=== PATIENT | female | born 1960 | race Caucasian/White ===

== ENCOUNTER → 2024-03-13 09:07 | Outpatient (REF) | payer MEDICARE, SELFPAY | LOC: RAD 09:07 | PROVIDERS: ATTENDING PHYSICIAN Otolaryngology; FAMILY PHYSICIAN Internal Medicine | DX: H91.8X3 Other specified hearing loss, bilateral (principal); H93.8X2 Other specified disorders of left ear | CPT/HCPCS: 70480 ==

== ENCOUNTER → 2024-04-21 10:48 | Outpatient (REF) | payer MEDICARE, SELFPAY | LOC: PAVMRI 10:48 | PROVIDERS: ATTENDING PHYSICIAN Otolaryngology; FAMILY PHYSICIAN Internal Medicine | DX: H91.8X3 Other specified hearing loss, bilateral (principal) | CPT/HCPCS: 70553; A9575 ==